=== PATIENT | female | born 1930 | race African-American/Black ===

== ENCOUNTER 2016-07-18 10:12 | Day surgery (SDC) | payer MEDICARE, OTHER ==
--- NOTE | 2016-06-16 09:21 | PREOPHP ---
DATE OF ADMISSION: 06/20/2016 HISTORY OF PRESENT ILLNESS: This 86-year-old patient is admitted for elective cataract surgery of t he right eye. The patient has had progressive deterioration of vision in the right eye without prio r history of eye disease or injury. The patient does have a history of deep vein thrombosis, conges tive heart failure, atrial fibrillation, systemic hypertension, fzl-nidqsrv-vklvlqefx diabetes melli tus, anemia, GERD, dementia, depressive disorder. CURRENT MEDICATIONS: Include: 1. Amlodipine. 2. Famotidine. 3. Iron sulfate. 4. Xarelto (discontinued for 5 days prior to surgery). 5. Carvedilol. 6. Tramadol. 7. Pro-Stat. 8. Remeron 9. Gabapentin. ALLERGIES: THERE ARE NO KNOWN ALLERGIES. PHYSICAL EXAMINATION: The patient has visual acuity of finger counting in the right eye and 20/60 i n the left eye. There is a right exotropia and a mature cataract in the right eye. The left eye israel s a moderate nuclear sclerosis and some posterior subcapsular cataract changes. Applanation tonomet ry is 16 mm in both eyes. Examination of the retina in the right eye is obscured by the mature caryl ract. The left eye appears within normal limits. DIAGNOSIS: Mature cataract, right eye. PLAN: Cataract extraction with lens implant, right eye. The risks and alternatives to the surgery as well as the inability to prognosticate visual outcome due to inability to visualize the retina in the right eye have been discussed with the patient. The patient understands this and desires to pr oceed with surgery in hopes of improving visual acuity leading to a greater ability to perform activ ities of daily living. Dictated By: OTILIA HEMPHILL/NOREEN Conf#: [id number] DID#: [id number]
[2016-07-10 11:25] VITALS: BMI 26.1
[2016-07-18] VITALS (8 sets, daily range): BP systolic 101–114; BP diastolic 55–76; PULSE 85–104; RESP 16–22; Ht 165.1 cm; Wt 74.5 kg
[~2016-07-18] VITALS: Ht 165.1 cm; Wt 74.5 kg
[~2016-07-18 10:12] MED LIST: CIPROFLOXACIN 0.3% 2.5 ML OPH OPER SCH; CYCLOPENTOLATE/PHENYLEPH 2 ML OPH OPER SCH; DICLOFENAC 0.1% 2.5 ML OPH OPER SCH; LIDOCAINE 2% (SDV) 5 ML INJ ONE; PROPOFOL 200 MG INJ ONE; TROPICAMIDE 1% 2 ML OPH OPER SCH
[2016-07-18] MEDS ORDERED: AMLO-147 PO (12:00)
[2016-07-18] MEDS ORDERED: MEMA28CA PO (12:00)
[2016-07-18] MEDS ORDERED: DOCU-144 PO (12:01)
[2016-07-18] MEDS ORDERED: MULTI PO (12:01)
[2016-07-18] MEDS ORDERED: DULR PR (12:01)
[2016-07-18] MEDS ORDERED: RIVA10TA PO ×2 (12:02→12:09)
[2016-07-18] MEDS ORDERED: MAGN400O4 PO (12:02)
[2016-07-18] MEDS ORDERED: GABA300C16 PO (12:02)
[2016-07-18] MEDS ORDERED: FER325 PO (12:03)
[2016-07-18] MEDS ORDERED: CRAN400T4 PO (12:03)
[2016-07-18] MEDS ORDERED: FAMO40TA52 PO (12:03)
[2016-07-18] MEDS ORDERED: SENN-53 PO (12:04)
[2016-07-18] MEDS ORDERED: FLEETOIL PR (12:04)
[2016-07-18] MEDS ORDERED: CARV6.2579 PO (12:05)
[2016-07-18] MEDS ORDERED: ASCO500C7 PO (12:05)
[2016-07-18] MEDS ORDERED: CHOL100062 PO (12:05)
[2016-07-18] MEDS ORDERED: MAGN400T28 PO (12:06)
[2016-07-18] MEDS ORDERED: TRAM-40 PO (12:06)
[2016-07-18] MEDS ORDERED: AMIN887L PO (12:07)
--- NOTE | 2016-07-18 12:07 | HPN ---
Date/Time of Note Date/Time of Note DATE: 07/18/16 TIME: 12:06 Interval H&P Admission Note Pt. seen H&P reviewed: No system changes OTILIA NICOLAS MD Jul 18, 2016 12:07
[2016-07-18] MEDS ORDERED: MIRT15TA PO (12:08)
[2016-07-18] MEDS ORDERED: LIDOCAINE 1% (MPF) 10 ML INJ ONE (12:46)
[2016-07-18] MEDS ORDERED: FENTAnyl 50 MCG/ML VIAL ONE (12:47)
[2016-07-18] MEDS ORDERED: DEXAMETHASONE 4 MG/ML 1 ML INJ ONE (12:48)
[2016-07-18] MEDS ORDERED: CARBACHOL 0.01% 1.5 ML OPH INJ INJ ONE (13:13)
[2016-07-18] MEDS ORDERED: CEFAZOLIN 1 GM INJ INJ ONE (13:13)
[2016-07-18] MEDS ORDERED: HYALURONATE/CHONDROITIN 1ML OPH INJ ONE (13:16)
--- NOTE | 2016-07-18 14:13 | OPR ---
DATE OF OPERATION: 07/18/2016 PREOPERATIVE DIAGNOSIS: Mature cataract, right eye. POSTOPERATIVE DIAGNOSIS: Mature cataract, right eye. OPERATION PERFORMED: Cataract extraction with lens implant, right eye. SURGEON: Otilia Montaño MD. ANESTHESIA: Local standby. ANESTHESIOLOGIST: ____. DESCRIPTION OF PROCEDURE: The patient was brought to the operating room and placed on the table wit h an IV in place and the patient attached to an case monitor. Oxygen was given via face mask. After some intravenous sedation was administered, local anesthesia was given using Xylocaine 2% with epinephrine, mixed with Marcaine 0.5%. This was given in a lid block and retrobulbar injection. The patient was then prepped and draped in the usual sterile manner. A wire lid speculum was inserted between the lids of the right eye. A Superblade was used to enter t he anterior chamber at the corneoscleral limbus at the 10:30 o'clock position. A separate incision w as made using a 3.0-mm keratome which entered the corneoscleral junction at the 12 o'clock position. Through this 3-mm opening, an irrigating cystotome was introduced into the anterior chamber. The ch uriah was filled with Viscoat and an anterior capsulotomy was performed. Balanced salt solution was then used for hydrodissection of the lens. A phacoemulsification handpiece was then brought into th e field and introduced into the anterior chamber. The lens nucleus was emulsified using a deep groov e and cracking the nucleus into quadrants. Following this, each quadrant was aspirated and emulsifie d at the pupillary margin. After this was completed, the irrigation/aspiration handpiece was brought to the field, introduced i nto the posterior chamber, and the lens cortical material was removed. When this was completed, teodora tional Viscoat was injected into the anterior and posterior chambers. The 3-mm opening had its internal lips enlarged, and then the posterior chamber intraocular lens janneth suring 21.5 diopters (Bausch and Lomb model [id number]) was then injected into the posterior chamber usi ng the lens injector system. After the leading haptic was introduced into the capsular bag and the l ens optic was present in the center of the eye, the injector was removed and the trailing haptic was grasped with non-toothed forceps and introduced into the capsular fold superiorly. A Sinskey hook w as then used to rotate the intraocular lens so that the lips were oriented in the horizontal meridia n. One 10-0 nylon suture was placed across the wound. Prior to tying, the irrigation/aspiration handpiece was reintroduced into the anterior chamber to re move the Viscoat. Miochol was instilled to constrict the pupil, and then the 10-0 nylon suture was t ied. The ends were cut short and then the knot was buried. Then, 0.5 mL of dexamethasone and 0.5 mL of Ancef were injected into the sub-Tenon space in the infe rior fornix. Ciloxan drops were then placed on the surface of the eye. The speculum was removed and a patch was applied. The patient then left the operating room in satisfactory condition. Dictated By: OTILIA HEMPHILL/NOREEN Conf#: [id number] DID#: [id number]
== END 2016-07-18 15:00 | disposition home or self-care (01) ==
LOC: SDS 10:12 → GIL 10:12 → EDSEX 10:12 → SDS 15:00
PROVIDERS: ATTEND Ophthalmology
DX: H25.89 Other age-related cataract (principal); I11.0 Hypertensive heart disease with heart failure; I50.30 Unspecified diastolic (congestive) heart failure; I48.91 Unspecified atrial fibrillation; E78.5 Hyperlipidemia, unspecified; M19.90 Unspecified osteoarthritis, unspecified site; Z86.73 Personal history of transient ischemic attack (TIA), and cerebral infarction without residual deficits; Z86.718 Personal history of other venous thrombosis and embolism; E11.9 Type 2 diabetes mellitus without complications; D64.9 Anemia, unspecified; K21.9 Gastro-esophageal reflux disease without esophagitis; F03.90 Unspecified dementia, unspecified severity, without behavioral disturbance, psychotic disturbance, mood disturbance, and anxiety; F32.9 Major depressive disorder, single episode, unspecified; H50.10 Unspecified exotropia
CPT/HCPCS: 66984; J0690; J1100; J3010; V2632

== ENCOUNTER 2016-12-03 08:46 | Inpatient (IN) | payer MEDICARE, OTHER ==
[~2016-12-03] VITALS: Ht 157.5 cm; Wt 74.8 kg
[~2016-12-03 08:46] MED LIST changes: +AMIN887L PO; +AMLO-147 PO; +ASCO500C7 PO; +BISA10SU75 PR; +CARV6.2579 PO; +CHOL100062 PO; -CIPROFLOXACIN 0.3% 2.5 ML OPH OPER SCH; +CRAN400T4 PO; -CYCLOPENTOLATE/PHENYLEPH 2 ML OPH OPER SCH; -DICLOFENAC 0.1% 2.5 ML OPH OPER SCH; +DOCU-144 PO; +FAMO40TA52 PO; +FER325 PO; +FLEETOIL PR; +GABA300C16 PO; -LIDOCAINE 2% (SDV) 5 ML INJ ONE; +MAGN400O4 PO; +MAGN400T28 PO; +MEMA28CA PO; +MIRT15TA PO; +MULTI PO; -PROPOFOL 200 MG INJ ONE; +RIVA10TA PO; +SENN-53 PO; +TRAM-40 PO; -TROPICAMIDE 1% 2 ML OPH OPER SCH
[2016-12-03] MEDS ORDERED: SOD CHLORIDE 0.9% 500 ML IV STA (08:50)
--- NOTE | 2016-12-03 09:08 | ERA ---
ER Documentation Chief Complaint Date/Time DATE: 12/03/16 TIME: 09:02 Chief Complaint HPI 86-year-old female brought in by ambulance for strokelike symptoms. She was found in bed this morning at her nursing facility at 8 AM with difficulty speaking and right-sided facial droop. Her last known well time was last night at 10 PM. It is unknown when her symptoms started. Patient is normally verbal. She is unable to provide any history given her aphasia. ROS Limited secondary to aphasia Medications Home Meds Reported Medications Rivaroxaban* (Xarelto*) 10 Mg Tablet, 10 MG PO BID, TAB 07/18/16 Mirtazapine* (Remeron*) 15 Mg Tablet, 7.5 MG PO HS, TAB 07/18/16 Amino Acids/Protein Hydrolys (Pro-Stat 64 Liquid) 887 Ml Liquid, 30 ML PO BID 07/18/16 Magnesium Oxide* (Magnesium Oxide*) 400 Mg Tablet, 400 MG PO DAILY, TAB 07/18/16 Tramadol Hcl* (Ultram*) 50 Mg Tablet, 50 MG PO Q8 Y for PAIN, TAB 07/18/16 Carvedilol* (Carvedilol*) 6.25 Mg Tablet, 6.25 MG PO BID, #60 TAB HOLD FOR SBP<110 OR HR<60 07/18/16 Cholecalciferol* (Vitamin D3*) 1,000 Unit Tablet, 1000 UNIT PO DAILY, TAB 07/18/16 Ascorbic Acid* (Vitamin C*) 500 Mg Capsule.sa, 500 MG PO DAILY, CAP 07/18/16 Sennosides* (Senna Lax*) 8.6 Mg Tablet, 1 TAB PO DAILY, TAB 07/18/16 Mineral Oil* (Fleet* Mineral Oil Enema) 133 Ml Oil, 133 ML CA DAILY Y for CONSTIPATION, ENEMA 07/18/16 Famotidine* (Famotidine*) 40 Mg Tablet, 40 MG PO HS, #30 TAB 07/18/16 Ferrous Sulfate* (Ferrous Sulfate*) 325 Mg Tabec, 325 MG PO BID, TAB 07/18/16 Cranberry Fruit (Cranberry) 400 Mg Tablet, 400 MG PO DAILY, TAB 07/18/16 Rivaroxaban* (Xarelto*) 10 Mg Tablet, 10 MG PO DAILY, TAB 07/18/16 Magnesium Hydroxide* (Milk Of Magnesia*) 400 Mg/5 Ml Oral.susp, 30 ML PO Q24H Y for CONSTIPATION, ML 07/18/16 Gabapentin* (Gabapentin*) 300 Mg Capsule, 300 MG PO TID, #90 CAP 07/18/16 Bisacodyl* (Bisacodyl*) 10 Mg Supp, 10 MG CA Q24H Y for CONSTIPATION, SUPP 07/18/16 Multivitamins* (Theragran*) 1 Tab Tab, 1 TAB PO DAILY, TAB 07/18/16 Docusate Sodium* (Colace*) 100 Mg Capsule, 100 MG PO BID, #60 CAP 07/18/16 Amlodipine Besylate* (Amlodipine Besylate*) 10 Mg Tablet, 10 MG PO DAILY, #30 TAB HOLD FOR SBP<110 07/18/16 Memantine* (Namenda* XR) 28 Mg Cap.spr.24, 28 MG PO DAILY, #30 TAB 07/18/16 Allergies Allergies: Coded Allergies: No Known Allergies (Verified Allergy, Unknown, 07/18/16) PMhx/Soc History of Surgery: No Anesthesia Reaction: No Hx Neurological Disorder: Yes (TIA) Hx Respiratory Disorders: No Hx Cardiac Disorders: Yes (CHF, HTN) Hx Psychiatric Problems: Yes (DEMENTIA, MAJOR DEPRESSION) Hx Miscellaneous Medical Probl: No Hx Alcohol Use: No Hx Substance Use: No Hx Tobacco Use: No FmHx Family History: other (unable to obtain) Physical Exam Vitals Vital Signs Date Time Temp Pulse Resp B/P Pulse Ox O2 Delivery O2 Flow Rate FiO2 12/03/16 10:16 60 12 174/82 100 Nasal Cannula 2.0 12/03/16 09:21 Nasal Cannula 2 12/03/16 08:53 98.9 78 20 168/88 98 Physical Exam Const: no apparent distress, nontoxic Head: Atraumatic Eyes: Normal Conjunctiva ENT: Dry mucous membranes Neck: Supple Resp: Clear to auscultation bilaterally Cardio: Irregularly irregular rhythm, regular rate, no murmurs Abd: Soft, non tender, non distended. Normal bowel sounds : Lakhani in place draining clear yellow urine Skin: No petechiae or rashes Back: No midline or flank tenderness Ext: No cyanosis, or edema, chronic appearing deformities in bilateral lower extremities with left anterior lower extremity wound overlying the tibia with dressing Neur: Awake and alert, slurred incomprehensible speech, right facial droop, unable to hold right arm up, able to hold left arm up. Strength testing is limited as the patient has very poor effort, but she does attempt to squeeze my hand on the left and there is no effort on the right. She does not move her lower extremities upon command. Result Diagram: 12/03/16 0948 12/03/16 0948 Results 24 hrs Laboratory Tests Test 12/03/16 09:48 12/03/16 10:20 12/03/16 10:25 White Blood Count 7.910^3/ul Red Blood Count 5.1010^6/ul Hemoglobin 14.2g/dl Hematocrit 44.9% Mean Corpuscular Volume 88.0fl Mean Corpuscular Hemoglobin 27.8pg Mean Corpuscular Hemoglobin Concent 31.6g/dl Red Cell Distribution Width 15.4% Platelet Count 19314^3/UL Mean Platelet Volume 13.0fl Neutrophils % 58.2% Lymphocytes % 24.7% Monocytes % 12.1% Eosinophils % 4.3% Basophils % 0.4% Nucleated Red Blood Cells % 0.0/100WBC Neutrophils # 4.610^3/ul Lymphocytes # 2.010^3/ul Monocytes # 1.010^3/ul Eosinophils # 0.310^3/ul Basophils # 0.010^3/ul Nucleated Red Blood Cells # 0.010^3/ul Prothrombin Time 13.8Sec Prothrombin Time Ratio 1.1 INR International Normalized Ratio 1.06 Activated Partial Thromboplast Time 26.9Sec Sodium Level 144mmol/L Potassium Level 3.9mmol/L Chloride Level 108mmol/L Carbon Dioxide Level 29mmol/L Anion Gap 11 Blood Urea Nitrogen 21mg/dl Creatinine 0.90mg/dl Glucose Level 90mg/dl Hemoglobin A1c 6.4% Calcium Level 9.5mg/dl Total Bilirubin 0.4mg/dl Direct Bilirubin 0.00mg/dl Indirect Bilirubin 0.4mg/dl Aspartate Amino Transf (AST/SGOT) 25IU/L Alanine Aminotransferase (ALT/SGPT) 31IU/L Alkaline Phosphatase 85IU/L Troponin I 0.012ng/ml Total Protein 7.6g/dl Albumin 4.2g/dl Globulin 3.40g/dl Albumin/Globulin Ratio 1.23 Urine Color LT. YELLOW Urine Clarity HAZY Urine pH 7.0 Urine Specific [place] 1.015 Urine Ketones NEGATIVE Urine Nitrite NEGATIVE Urine Bilirubin NEGATIVE Urine Urobilinogen 0.2 E.U./dL Urine Leukocyte Esterase 2+ Urine Microscopic RBC 25-50/HPF Urine Microscopic WBC 25-50/HPF Urine Squamous Epithelial Cells FEW Urine Bacteria FEW Urine Hemoglobin 2+ Urine Glucose NEGATIVE% Urine Total Protein NEGATIVE Urine Opiates Screen Negative Urine Barbiturates Negative Urine Amphetamines Screen Negative Urine Benzodiazepines Screen Negative Urine Cocaine Screen Negative Urine Cannabinoids Negative Bedside Glucose 70mg/dL Current Medications Medications (Trade) Dose Ordered Sig/Jc Route PRN Reason Start Time Stop Time Status Last Admin Dose Admin Sodium Chloride 500 ml @ 500 mls/hr Q1H STAT IV 12/03/16 08:50 12/03/16 09:49 DC 12/03/16 10:00 Dextrose/Sodium Chloride (D5-1/2ns) 1,000 ml @ 100 mls/hr Q10H ONCE IV 12/03/16 10:37 12/03/16 20:36 12/03/16 10:43 Ondansetron HCl (Zofran Inj) 4 mg ER BRIDGE PRN IV NAUSEA AND/OR VOMITING 12/03/16 11:30 12/04/16 11:29 Acetaminophen (Tylenol Tab) 650 mg ER BRIDGE PRN PO MILD PAIN/FEVER 12/03/16 11:30 12/04/16 11:29 Procedures/MDM Labs: CBC: no anemia or evidence of infection CMP: No evidence of electrolyte abnormality, renal failure, hypoglycemia, liver failure, or biliary obstruction Troponin within normal limits UA: Positive leuk esterase, WBCs, RBCs, consistent with UTI EKG: Rate/Rhythm: A flutter with variable block, normal rate QRS, ST, T-waves: No changes consistent w/ acute ischemia Impression: No evidence of ischemia or arrhythmia Imaging: CT head IMPRESSION: 1. Interval loss of gilbert-white differentiation within the right frontal parietal lobes suggesting acute / recent infarctions. Consider CTA of the head/ neck or noncontrast MRI of the brain as clinically warranted. 2. No acute intracranial hemorrhage. 3. Mild to moderate cerebral and mild volume loss. 4. Advanced chronic microvascular ischemic changes. 5. Small chronic left vertex infarction. 6. Small chronic right cerebellar infarction. .Jani Forrester MD, MD Date Time Electronically viewed and signed by .Jani Forrester MD, MD on 12/03/2016 09:16 MRI brain pending CXR: IMPRESSION: 1. Cardiomegaly with diffusely prominent interstitial lung markings likely representing mild interstitial edema. 2. Minimal left lower lobe atelectasis. 3. Chronic changes of the proximal right humerus with large nonspecific sclerotic density within the humeral head. Dedicated shoulder films may be obtained for further evaluation. .Crescencio Blanco MD, Date Time Electronically viewed and signed by .Crescencio Blanco MD, on 12/03/2016 09:48 MDM Patient's neurologic symptoms are concerning for acute stroke, infectious, or metabolic cause and will require inpatient workup and continuous monitoring. Vitals are stable. Urinalysis shows evidence of UTI. Broad-spectrum antibiotics given. There is no evidence of sepsis. As the patient is outside the TPA window, code stroke was not activated. MRI brain was ordered and is pending. There is no evidence of bleed on CT head. Further w/u for will be deferred to the inpatient team. Neuro Critical Care: Critical Care Time: 35 minutes Treatments/Evaluations: Continuous neurologic and cardiovascular monitoring for deterioration of neurologic function and complications, while obtaining immediate neurologic imaging. Considerations made for TPA and invasive therapy with discussions with family. TPA Criteria Assessment: Patient is not a TPA candidate because: Last known normal > 3 hours Time Onset Unknown Accepting Care Team: Current data and ongoing care discussed. Time: Time of admission Primary Provider: Esvin Consulting: none Outstanding Data: urine culture, MRI Brain Departure Diagnosis: Primary Impression: Acute ischemic stroke Additional Impression: UTI (urinary tract infection) Qualified Code: T83.511A - Urinary tract infection associated with indwelling urethral catheter, initial encounter Condition: Serious SIMEON YOUSSEF MD Dec 03, 2016 09:08
--- NOTE | 2016-12-03 09:16 | RADRPT ---
PROCEDURE: Noncontrast CT Head. CLINICAL INDICATION: Code stroke. Acute neurologic deficit. TECHNIQUE: Noncontrast CT of the head was obtained. The administered radiation dose was CTDI vol = 45.01 mGy, DLP = 720.23 mGy-cm. One or more of the following dose reduction techniques were used: Au tomated exposure control, Adjustment of the mA and/or kV according to patient size, or Use of iterat diya reconstruction technique. COMPARISON: Noncontrast CT of the head from July 28, 2016. FINDINGS: There is mild to moderate generalized cerebral volume loss. There is mild cerebellar volume loss. Th ere is extensive periventricular hypoattenuation suggesting chronic microvascular ischemic changes. There are mild vascular calcifications within the intracranial carotid arteries. There is a small chronic right cerebellar infarction. There is interval loss of gilbert-white differentiation within the right posterior frontal / parietal l obe most compatible with acute / recent right posterior frontal and right parietal lobe infarction w ithin the right middle cerebral artery distribution. There is a small chronic left vertex infarctio n. There is no acute intracranial hemorrhage or extra-axial fluid collection. No midline shift is identified. The orbits are within normal limits. The paranasal sinuses are well aerated. No destructive osseous lesion is identified. IMPRESSION: 1. Interval loss of gilbert-white differentiation within the right frontal parietal lobes suggesting ac [place] / recent infarctions. Consider CTA of the head/neck or noncontrast MRI of the brain as clinical ly warranted. 2. No acute intracranial hemorrhage. 3. Mild to moderate cerebral and mild volume loss. 4. Advanced chronic microvascular ischemic changes. 5. Small chronic left vertex infarction. 6. Small chronic right cerebellar infarction. Further findings as detailed above. These findings were discussed with Dr. Sejal Whyte at 09:12 a.m. on December 03, 2016. RPTAT: PP .Jani Forrester MD, Date Time Electronically viewed and signed by .Jani Forrester MD, on 12/03/2016 09:16 .F/
--- NOTE | 2016-12-03 09:48 | RADRPT ---
PROCEDURE: XR Chest. CLINICAL INDICATION: Shortness of breath TECHNIQUE: Single frontal chest x-ray. COMPARISON: None available FINDINGS: The heart size is enlarged. There is mild prominence of interstitial lung markings diffusely. Mini mal left lower lobe atelectasis is present. No definite effusion or pneumothorax is seen. Chronic deformity of the proximal right humerus is noted with 3.4 x 1.6 cm irregular sclerotic density seen at the humeral head. IMPRESSION: 1. Cardiomegaly with diffusely prominent interstitial lung markings likely representing mild inters titial edema. 2. Minimal left lower lobe atelectasis. 3. Chronic changes of the proximal right humerus with large nonspecific sclerotic density within th e humeral head. Dedicated shoulder films may be obtained for further evaluation. RPTAT: EE .Crescencio Blanco MD, Date Time Electronically viewed and signed by .Crescencio Blanco MD, on 12/03/2016 09:48 .A/
[2016-12-03 10:08] LABS: ADD SCAN DIFF NO
[2016-12-03 10:12] LABS: BASOPHILS % 0.4 % (0.0-2.0); EOSINOPHILS # 0.3 10^3/ul (0.0-0.5); EOSINOPHILS % 4.3 % (0.0-7.0); HEMATOCRIT 44.9 % (37.0-47.0); HEMOGLOBIN 14.2 g/dl (12.0-16.0); LYMPHOCYTES % 24.7 % (15.0-51.0); MEAN CORPUSCULAR HEMOGLOBIN 27.8 pg (29.0-33.0); MEAN CORPUSCULAR HGB CONC 31.6 g/dl (32.0-37.0); MONOCYTES % 12.1 % (0.0-11.0); NEUTROPHIL # 4.6 10^3/ul (1.6-7.5); NEUTROPHILS % 58.2 % (39.0-77.0); PLATELET COUNT 173 10^3/UL (140-415); RED CELL DISTRIBUTION WIDTH 15.4 % (11.5-14.5); WHITE BLOOD COUNT 7.9 10^3/ul (4.8-10.8)
[2016-12-03 10:34] LABS: INR 1.06; PROTIME 13.8 Sec (12.2-14.2); PT RATIO 1.1
[2016-12-03 10:35] LABS: PARTIAL THROMBOPLASTIN TIME 26.9 Sec (25.0-35.0)
[2016-12-03 10:35] LABS: ADD UMIC YES; UR BILIRUBIN (Dip) NEGATIVE (NEGATIVE); UR BLOOD (Dip) 2+ (NEGATIVE); UR COLOR LT. YELLOW (YELLOW); UR GLUCOSE (Dip) NEGATIVE (NEGATIVE); UR KETONES (Dip) NEGATIVE (NEGATIVE); UR LEUKOCYTE ESTERASE (Dip) 2+ (NEGATIVE); UR NITRITE (Dip) NEGATIVE (NEGATIVE); UR TOTAL PROTEIN (Dip) NEGATIVE (NEGATIVE); UR UROBILINOGEN (Dip) 0.2 E.U./dL (0.1-1.0)
[2016-12-03] MEDS ORDERED: DEXTROSE 5%-0.45% NACL 1,000 ML IV ONE (10:37)
[2016-12-03 10:39] LABS: ALBUMIN 4.2 g/dl (3.3-4.9); ALBUMIN/GLOBULIN RATIO 1.23; BILIRUBIN,INDIRECT 0.4 mg/dl (0-1.1); BILIRUBIN,TOTAL 0.4 mg/dl (0.2-1.3); CALCIUM 9.5 mg/dl (8.4-10.2); CREATININE 0.9 mg/dl (0.44-1.00); POTASSIUM 3.9 mmol/L (3.5-5.1); TOTAL PROTEIN 7.6 g/dl (6.1-8.1)
[2016-12-03 10:49] LABS: TROPONIN-I 0.012 ng/ml (0.00-0.12)
[2016-12-03 10:57] LABS: BARBITURATES Negative (NEGATIVE); BENZODIAZEPINES Negative (NEGATIVE); CANNABINOIDS Negative (NEGATIVE); COCAINE Negative (NEGATIVE)
[2016-12-03 11:00] LABS: UR BACTERIA FEW; UR SQUAMOUS EPITHELIAL CELL FEW; URINE RBCS 25-50 /HPF (0)
[2016-12-03 11:02] LABS: UR CLARITY HAZY (CLEAR)
[2016-12-03 11:11] LABS: OPIATES Negative (NEGATIVE)
[2016-12-03] MEDS ORDERED: ONDANSETRON 4 MG INJ IV PRN ×2 (11:30→21:00)
[2016-12-03] MEDS ORDERED: ACETAMINOPHEN 325 MG TAB PO PRN (11:30)
[2016-12-03] MEDS ORDERED: PIPER-TAZO 3.375 GM IV (PMX) 100 ML IVPB ONE (12:00)
--- NOTE | 2016-12-03 15:01 | HP ---
Date/Time of Note Date/Time of Note DATE: 12/03/16 TIME: 14:49 Assessment/Plan VTE Prophylaxis VTE Prophylaxis Intervention: LMWH Lines/Catheters IV Catheter Type (from Nrs): Peripheral IV Assessment/Plan Assessment/Plan 86 yo F admitted and managed for: 1. R sided frontal strokes 2. Probable UTI 3. PreDM 4. Paroxysmal Afib previously on xarelto 5. Chronic dementia PLAN: Admit tele / MRI / MRA brain and neck / 2D echo PT / OT eval / Neurology consult Screening labs for dyslipidemia, Thyroid disease Empiric ASA / Statin therapy Urine culture Neurology Consult, Speech and Physical therapy consults. Change Xarelto to full dose lovenox until cleared for oral meds Further evaluation and treatment will be based on clinical course and findings Prophylaxis: lovenox and Pepcid HPI/ROS Admit Date/Time Admit Date/Time 12/03/16 Hx of Present Illness 86-year-old female brought in by ambulance for strokelike symptoms. She was found in bed this morning at her nursing facility at 8 AM with difficulty speaking and right-sided facial droop. Her last known well time was last night at 10 PM. It is unknown when her symptoms started. Patient is normally verbal. She is unable to provide any history given her aphasia. ROS Subjective hx not possible: pt non-verbal PMH/Family/Social Past Medical History Medical History: hypertension Past Surgical History Past Surgical Hx: other (unknown) Family History Significant Family History: other (unknown) Social History Smoking Status: Unknown if ever smoked Exam/Review of Systems Vital Signs Vitals VS - Last 72 Hours, by Label Date Time Temp Pulse Resp B/P Pulse Ox O2 Delivery O2 Flow Rate FiO2 12/03/16 12:02 61 20 140/104 100 Nasal Cannula 12/03/16 10:16 60 12 174/82 100 Nasal Cannula 2.0 12/03/16 09:21 Nasal Cannula 2 12/03/16 08:53 98.9 78 20 168/88 98 Vital Signs Date Time Temp Pulse Resp B/P Pulse Ox O2 Delivery O2 Flow Rate FiO2 12/03/16 12:02 61 20 140/104 100 Nasal Cannula 12/03/16 10:16 2.0 12/03/16 08:53 98.9 Exam Exam GENERAL: Patient is alert, oriented , no distress HEENT: Oropharynx is clear. There is no carotid bruit, no masses. Patient's pupils are equal, round and reactive to light bilaterally. Extraocular motions are intact. There is no scleral icterus. There is no facial asymmetry. NECK: Supple. LUNGS: Clear to auscultation bilaterally with good air entry. No Wheezes or crackles. HEART: S1, S2. No murmur, gallops or rubs. Regular rate and rhythm. ABDOMEN: Soft, nontender. Normoactive bowel sounds. There are no stigmata of chronic liver disease. BACK: no costovertebral angle tenderness. GENITOURINARY: Deferred. Ext: No cyanosis, or edema, chronic appearing deformities in bilateral lower extremities with left anterior lower extremity wound overlying the tibia with dressing Neur: Awake and alert, slurred incomprehensible speech, right facial droop, unable to hold right arm up, able to hold left arm up. Strength testing is limited as the patient has very poor effort, but she does attempt to squeeze my hand on the left and there is no effort on the right. She does not move her lower extremities upon command. SKIN: Otherwise, unremarkable. Labs Result Diagram: 12/03/16 0948 12/03/16 0948 Medications Medications Current Medications Dextrose/Sodium Chloride (D5-1/2ns) 1,000 ml @ 100 mls/hr Q10H ONCE IV Last administered on 12/03/16t 10:43; Admin Dose 100 MLS/HR; Start 12/03/16 at 10:37 ; Stop 12/03/16 at 20:36 Procedures Procedures Laboratory Tests Test 12/03/16 09:48 12/03/16 10:20 12/03/16 10:25 White Blood Count 7.910^3/ul Red Blood Count 5.1010^6/ul Hemoglobin 14.2g/dl Hematocrit 44.9% Mean Corpuscular Volume 88.0fl Mean Corpuscular Hemoglobin 27.8pg Mean Corpuscular Hemoglobin Concent 31.6g/dl Red Cell Distribution Width 15.4% Platelet Count 22561^3/UL Mean Platelet Volume 13.0fl Neutrophils % 58.2% Lymphocytes % 24.7% Monocytes % 12.1% Eosinophils % 4.3% Basophils % 0.4% Nucleated Red Blood Cells % 0.0/100WBC Neutrophils # 4.610^3/ul Lymphocytes # 2.010^3/ul Monocytes # 1.010^3/ul Eosinophils # 0.310^3/ul Basophils # 0.010^3/ul Nucleated Red Blood Cells # 0.010^3/ul Prothrombin Time 13.8Sec Prothrombin Time Ratio 1.1 INR International Normalized Ratio 1.06 Activated Partial Thromboplast Time 26.9Sec Sodium Level 144mmol/L Potassium Level 3.9mmol/L Chloride Level 108mmol/L Carbon Dioxide Level 29mmol/L Anion Gap 11 Blood Urea Nitrogen 21mg/dl Creatinine 0.90mg/dl Glucose Level 90mg/dl Hemoglobin A1c 6.4% Calcium Level 9.5mg/dl Total Bilirubin 0.4mg/dl Direct Bilirubin 0.00mg/dl Indirect Bilirubin 0.4mg/dl Aspartate Amino Transf (AST/SGOT) 25IU/L Alanine Aminotransferase (ALT/SGPT) 31IU/L Alkaline Phosphatase 85IU/L Troponin I 0.012ng/ml Total Protein 7.6g/dl Albumin 4.2g/dl Globulin 3.40g/dl Albumin/Globulin Ratio 1.23 Urine Color LT. YELLOW Urine Clarity HAZY Urine pH 7.0 Urine Specific [place] 1.015 Urine Ketones NEGATIVE Urine Nitrite NEGATIVE Urine Bilirubin NEGATIVE Urine Urobilinogen 0.2 E.U./dL Urine Leukocyte Esterase 2+ Urine Microscopic RBC 25-50/HPF Urine Microscopic WBC 25-50/HPF Urine Squamous Epithelial Cells FEW Urine Bacteria FEW Urine Hemoglobin 2+ Urine Glucose NEGATIVE% Urine Total Protein NEGATIVE Urine Opiates Screen Negative Urine Barbiturates Negative Urine Amphetamines Screen Negative Urine Benzodiazepines Screen Negative Urine Cocaine Screen Negative Urine Cannabinoids Negative Bedside Glucose 70mg/dL Current Medications Medications (Trade) Dose Ordered Sig/Jc Route PRN Reason Start Time Stop Time Status Last Admin Dose Admin Sodium Chloride 500 ml @ 500 mls/hr Q1H STAT IV 12/03/16 08:50 12/03/16 09:49 DC 12/03/16 10:00 500 MLS/HR Dextrose/Sodium Chloride (D5-1/2ns) 1,000 ml @ 100 mls/hr Q10H ONCE IV 12/03/16 10:37 12/03/16 20:36 12/03/16 10:43 100 MLS/HR Ondansetron HCl (Zofran Inj) 4 mg ER BRIDGE PRN IV NAUSEA AND/OR VOMITING 12/03/16 11:30 12/04/16 11:29 Acetaminophen 650 mg 650 mg ER BRIDGE PRN PO MILD PAIN/FEVER 12/03/16 11:30 12/04/16 11:29 Piperacillin Sod/ Tazobactam Sod (Zosyn 3.375gm/ 100 ml (Pmx)) 100 ml @ 200 mls/hr ONCE ONCE IVPB 12/03/16 12:00 12/03/16 12:29 DC 12/03/16 13:00 200 MLS/HR EKG: Abnormal / A flutter / No STEMI CT head IMPRESSION: 1. Interval loss of gilbert-white differentiation within the right frontal parietal lobes suggesting acute / recent infarctions. Consider CTA of the head/ neck or noncontrast MRI of the brain as clinically warranted. 2. No acute intracranial hemorrhage. 3. Mild to moderate cerebral and mild volume loss. 4. Advanced chronic microvascular ischemic changes. 5. Small chronic left vertex infarction. 6. Small chronic right cerebellar infarction. .Jani Forrester MD, MD Date Time Electronically viewed and signed by .Jani Forrester MD, MD on 12/03/2016 09:16 PROCEDURE: XR Chest. FINDINGS: The heart size is enlarged. There is mild prominence of interstitial lung markings diffusely. Minimal left lower lobe atelectasis is present. No definite effusion or pneumothorax is seen. Chronic deformity of the proximal right humerus is noted with 3.4 x 1.6 cm irregular sclerotic density seen at the humeral head. IMPRESSION: 1. Cardiomegaly with diffusely prominent interstitial lung markings likely representing mild interstitial edema. 2. Minimal left lower lobe atelectasis. 3. Chronic changes of the proximal right humerus with large nonspecific sclerotic density within the humeral head. Dedicated shoulder films may be obtained for further evaluation. JIMI GARCIA Dec 03, 2016 15:00
[2016-12-03] MEDS: ATORVASTATIN 40 MG TAB PO SCH (21:00)
[2016-12-03 21:16] VITALS: PULSE 66
[2016-12-03] MEDS: FAMOTIDINE 20 MG INJ IV SCH (22:08)
[2016-12-03] MEDS: ENOXAPARIN 100 MG/ML SYG SC SCH (22:11)
[2016-12-03 22:16] VITALS: BP 146/85; RESP 16
[2016-12-03 23:29] VITALS: Ht 157.5 cm; Wt 74.8 kg
[2016-12-03 23:41] LABS: CREATINE KINASE 98 IU/L (23-200)
[2016-12-03 23:53] LABS: CK-MB 3.89 ng/ml (0.0-2.4)
[2016-12-03 23:57] LABS: TROPONIN-I < 0.012 ng/ml (0.00-0.12)
[2016-12-04] VITALS (12 sets, daily range): BP systolic 119–153; BP diastolic 60–103; PULSE 68–81; RESP 16–20
[2016-12-04 06:39] LABS: ADD SCAN DIFF NO
[2016-12-04 06:50] LABS: ABNORMAL IP MESSAGE 1; BASOPHILS % 0.6 % (0.0-2.0); EOSINOPHILS # 0.3 10^3/ul (0.0-0.5); HEMOGLOBIN 13.4 g/dl (12.0-16.0); LYMPHOCYTES # 1.3 10^3/ul (0.8-2.9); LYMPHOCYTES % 17.5 % (15.0-51.0); MEAN CORPUSCULAR HEMOGLOBIN 28.3 pg (29.0-33.0); MEAN CORPUSCULAR HGB CONC 32.7 g/dl (32.0-37.0); MEAN CORPUSCULAR VOLUME 86.5 fl (82.0-101.0); MEAN PLATELET VOLUME 13.2 fl (7.4-10.4); MONOCYTE # 0.9 10^3/ul (0.3-0.9); MONOCYTES % 11.7 % (0.0-11.0); NEUTROPHIL # 4.8 10^3/ul (1.6-7.5); NEUTROPHILS % 65.9 % (39.0-77.0); PLATELET COUNT 158 10^3/UL (140-415); RED BLOOD COUNT 4.74 10^6/ul (4.20-5.40); RED CELL DISTRIBUTION WIDTH 15.4 % (11.5-14.5); WHITE BLOOD COUNT 7.3 10^3/ul (4.8-10.8)
[2016-12-04 07:02] LABS: ALBUMIN 3.6 g/dl (3.3-4.9); BILIRUBIN,INDIRECT 0.6 mg/dl (0-1.1); BILIRUBIN,TOTAL 0.6 mg/dl (0.2-1.3); CALCIUM 9.6 mg/dl (8.4-10.2); CHOL/HDL RATIO 5.6 RATIO; CREATININE 0.65 mg/dl (0.44-1.00); MAGNESIUM 1.7 mg/dl (1.7-2.5); POTASSIUM 4.1 mmol/L (3.5-5.1); TOTAL PROTEIN 6.8 g/dl (6.1-8.1)
[2016-12-04 07:04] LABS: INR 1.16; PARTIAL THROMBOPLASTIN TIME 33.2 Sec (25.0-35.0); PROTIME 14.8 Sec (12.2-14.2); PT RATIO 1.2
[2016-12-04 07:15] LABS: CK-MB 2.88 ng/ml (0.0-2.4); TROPONIN-I 0.021 ng/ml (0.00-0.12)
[2016-12-04 07:32] LABS: THYROID STIMULATING HORMONE 1.68 MIU/L (0.465-4.680)
[2016-12-04] MEDS ORDERED: ASPIRIN (EC) 81 MG TAB PO SCH (09:00)
[2016-12-04] MEDS: FAMOTIDINE 20 MG INJ IV SCH ×2 (09:09→20:33)
--- NOTE | 2016-12-04 09:09 | RADRPT ---
PROCEDURE: US Carotids. CLINICAL INDICATION: Dizziness, stroke. TECHNIQUE: Multiple sonographic of the carotid bifurcation region and vertebral arteries were obta ined utilizing gilbert scale, duplex and color-flow imaging. The images were reviewed on a PACS worksta tion. COMPARISON: No prior studies are available for comparison. FINDINGS: Evaluation of the right carotid bifurcation region reveals mild atherosclerotic disease in the carot id bulb. Evaluation of the left carotid bifurcation region reveals mild atherosclerotic disease in the caroti d bulb. There is antegrade flow within the vertebral arteries bilaterally. RIGHT CAROTID MEASUREMENTS: Common Carotid [id number] (cm/sec) Internal Carotid Artery - proximal 43 (cm/sec) Internal Carotid Artery - mid37 (cm/sec) Internal Carotid Artery - [id number] (cm/sec) External Corotid Artery 37 (cm/sec) Vertebral Artery 20 (cm/sec) Internal Carotid/Common Carotid 1.6 LEFT CAROTID MEASUREMENTS: Common Carotid Artery 44 (cm/sec) Internal Carotid Artery - proximal 36 (cm/sec) Internal Carotid Artery - mid 34 (cm/sec) Internal Carotid Artery - distal 45 (cm/sec) External Corotid Artery 85 (cm/sec) Vertebral Artery 34 (cm/sec) Internal Carotid/Common Carotid 1.0 IMPRESSION: No evidence for hemodynamically significant carotid artery stenosis. Mild atherosclerotic disease in the carotid bulbs. Antegrade flow in the vertebral arteries bilaterally. Validated velocity measurements with angiographic measurements, velocity criteria are extrapolated f rom diameter data as defined by the Society of Radiologists in Ultrasound Consensus Conference Radi ology 2003; 229; 340 - 346. This study does indirectly reference the measurement of the distal inte rnal carotid artery diameter as the denominator for stenosis measurement. RPTAT: AA .Bennett Ramírez MD, MD Date Time Electronically viewed and signed by .Bennett Ramírez MD, MD on 12/04/2016 09:09 .P/
[2016-12-04] MEDS: ENOXAPARIN 100 MG/ML SYG SC SCH ×2 (09:11→20:35)
--- NOTE | 2016-12-04 15:41 | PN ---
Date/Time of Note Date/Time of Note DATE: 12/04/16 TIME: 15:34 Assessment/Plan VTE Prophylaxis VTE Prophylaxis Intervention: LMWH Lines/Catheters IV Catheter Type (from Nrs): Saline Lock Urinary Cath still in place: Yes Reason Cath still needed: urinary retention Assessment/Plan Chief Complaint/Hosp Course Assessment/Plan: 86 yo F admitted and managed for: 1. R sided frontal strokes - pt failed ST eval. - f/u MRI / MRA brain and neck / 2D echo - f/u PT / OT eval / Neurology consult - Screening labs for dyslipidemia, Thyroid disease - Empiric ASA / Statin therapy 2. Probable UTI - start Rocephin 3. Pre DM - ISS 4. Paroxysmal Afib previously on xarelto - on LMWH now b/c failed ST 5. Chronic dementia Prophylaxis: lovenox and Pepcid Problems: Subjective 24 Hr Interval Summary Free Text/Dictation Pt awaiting Neuro consult, seen by ST. Exam/Review of Systems Vital Signs Vitals Vital Signs Date Time Temp Pulse Resp B/P Pulse Ox O2 Delivery O2 Flow Rate FiO2 12/04/16 15:32 98.6 68 20 141/69 97 12/04/16 10:21 Nasal Cannula 2.0 Intake and Output 12/03/16 12/03/16 12/04/16 15:00 23:00 07:00 Intake Total 0 ml Output Total 1500 ml Balance -1500 ml Exam GENERAL: Patient is alert, oriented , no distress HEENT: Oropharynx is clear. There is no carotid bruit, no masses. Patient's pupils are equal, round and reactive to light bilaterally. Extraocular motions are intact. There is no scleral icterus. There is no facial asymmetry. NECK: Supple. LUNGS: Clear to auscultation bilaterally with good air entry. No Wheezes or crackles. HEART: S1, S2. No murmur, gallops or rubs. Regular rate and rhythm. ABDOMEN: Soft, nontender. Normoactive bowel sounds. There are no stigmata of chronic liver disease. BACK: no costovertebral angle tenderness. Ext: No cyanosis, or edema, chronic appearing deformities in bilateral lower extremities with left anterior lower extremity wound overlying the tibia with dressing Neur: Awake and alert, slurred incomprehensible speech, right facial droop, unable to hold right arm up, but able to hold left arm up. Strength testing is limited as the patient has very poor effort, but she does attempt to squeeze my hand on the left and there is no effort on the right. She does not move her lower extremities upon command. SKIN: Otherwise, unremarkable. Results Result Diagram: 12/04/1615 12/04/16 0615 Results 24 hrs Laboratory Tests Test 12/03/16 22:45 12/04/16 06:15 Creatine Kinase 98 103 Creatine Kinase Index 4.0 2.8 Creatinine Kinase MB (Mass) 3.89 H 2.88 H Troponin I < 0.012 0.021 White Blood Count 7.3 Red Blood Count 4.74 Hemoglobin 13.4 Hematocrit 41.0 Mean Corpuscular Volume 86.5 Mean Corpuscular Hemoglobin 28.3 L Mean Corpuscular Hemoglobin Concent 32.7 Red Cell Distribution Width 15.4 H Platelet Count 158 Mean Platelet Volume 13.2 H Neutrophils % 65.9 Lymphocytes % 17.5 Monocytes % 11.7 H Eosinophils % 4.0 Basophils % 0.6 Nucleated Red Blood Cells % 0.0 Neutrophils # 4.8 Lymphocytes # 1.3 Monocytes # 0.9 Eosinophils # 0.3 Basophils # 0.0 Nucleated Red Blood Cells # 0.0 Prothrombin Time 14.8 H Prothrombin Time Ratio 1.2 INR International Normalized Ratio 1.16 Activated Partial Thromboplast Time 33.2 Sodium Level 145 H Potassium Level 4.1 Chloride Level 112 H Carbon Dioxide Level 23 Anion Gap 14 Blood Urea Nitrogen 13 Creatinine 0.65 Glucose Level 85 Calcium Level 9.6 Magnesium Level 1.7 Total Bilirubin 0.6 Direct Bilirubin 0.00 Indirect Bilirubin 0.6 Aspartate Amino Transf (AST/SGOT) 25 Alanine Aminotransferase (ALT/SGPT) 34 Alkaline Phosphatase 79 Total Protein 6.8 Albumin 3.6 Triglycerides Level 102 Cholesterol Level 198 LDL Cholesterol, Calculated 143 HDL Cholesterol 35 Cholesterol/HDL Ratio 5.6 Thyroid Stimulating Hormone (TSH) 1.680 Medications Medications Current Medications Atorvastatin Calcium (Lipitor) 40 mg HS PO ; Start 12/03/16 at 21:00 Ondansetron HCl (Zofran Inj) 4 mg Q6H PRN IV NAUSEA AND/OR VOMITING; Start at 21:00 Famotidine (Pepcid Iv) 20 mg BID IV Last administered on 12/04/16t 09:09; Admin Dose 20 MG; Start 12/03/16 at 21:00 Enoxaparin Sodium (Lovenox) 75 mg Q12 SC Last administered on 12/04/16t 09:11; Admin Dose 75 MG; Start 12/03/16 at 21:30 Aspirin 300 mg 300 mg DAILY [place] ; Start 12/05/16 at 09:00 Ceftriaxone Sodium (Rocephin) 50 ml @ 100 mls/hr Q24H IVPB ; Start 12/04/16 at 15:30 DIANNA DIAZ Dec 04, 2016 15:41 DIANNA DIAZ Dec 04, 2016 15:41
--- NOTE | 2016-12-04 17:17 | RADRPT ---
Echocardiogram Report Patient Name: ADRIAN ADAMSON Gender: Female Date: 1930 Study Date: 04-Dec-2016 Project Associate: Ciro Temple [facility] Location: [facility] Ref. Physician: JIMI GARCIA Quality: Adequate Procedures: Transthoracic echocardiogram with complete 2D, M-Mode, and doppler examination. Indications: stroke. 2D/M Mode Doppler Measurement Value Normal Ranges Measurement Value Normal Ranges LVIDd 2D 3.3 3.5 - 5.6 cm AV Peak Missael 1.1 m/sec LVIDs 2D 2.4 2.1 - 4.1 cm AV Peak PG 5.0 mmHg FS 2D 25.4 % LVOT Peak Missael 0.8 m/sec LVPWd 2D 1.1 0.6 - 1.1 cm LVOT Peak PG 3.0 mmHg IVSd 2D 1.2 0.6 - 1.1 cm MV E Peak Missael 1.0 m/sec IVS/LVPW 2D 1.1 MV Decel Time 183 msec AoR Diam 2D 2.4 2.0 - 3.7 cm TR Peak Missael 3.1 m/sec LA/Ao 2D 2 0 - 1 TR Peak PG 39.0 mmHg EDV 2D 35.0 cm3 RVSP 47.0 mmHg ESV 2D 14.5 cm3 LA Dimen 2D 3.9 2.3 - 4.0 cm Findings Left Ventricle: Normal left ventricular systolic function. Normal left ventricular cavity size. Mild concentric left ventricular hypertrophy. Ejection fraction is visually estimated at 55 %. Abnormal Diastolic Function. Right Ventricle: Normal right ventricular size. Normal right ventricular systolic function. Left Atrium: There is moderate enlargement of left atrium. Right Atrium: There is mild enlargement of right atrium. Mitral Valve: Mild mitral leaflet calcification. Mild mitral annular calcification. Trace mitral regurgitation. Aortic Valve: Normal appearance of the aortic valve. No significant aortic stenosis or insufficiency. Tricuspid Valve: Normal appearance of the tricuspid valve. Estimated peak PA systolic pressure 47 mmHg. There is mild to moderate tricuspid regurgitation. Pulmonic Valve: Normal pulmonic valve appearance. Pericardium: Normal pericardium with no significant pericardial effusion. Aorta: Normal aortic root. IVC: Normal size and no respiratory collapse consistent with elevated right atrial pressure. Conclusions Normal left ventricular systolic function. Normal left ventricular cavity size. Mild concentric left ventricular hypertrophy. Ejection fraction is visually estimated at 55 %. Abnormal Diastolic Function. Normal right ventricular size. Normal right ventricular systolic function. There is moderate enlargement of left atrium. There is mild enlargement of right atrium. Normal appearance of the tricuspid valve. Estimated peak PA systolic pressure 47 mmHg. There is mild to moderate tricuspid regurgitation. No significant valvular stenosis or regurgitation seen of remaining visualized valves. Normal pericardium with no significant pericardial effusion. Electronically Signed By: Brijesh Alejandro 04-Dec-2016 17:16:55 -0700 Patient Name: ADRIAN ADAMSON Study Date: 04-Dec-2016 [id number]
--- NOTE | 2016-12-04 18:43 | RADRPT ---
PROCEDURE: MRI Brain without contrast. CLINICAL INDICATION: Neurologic deficit. Possible stroke TECHNIQUE: MRI of the brain was performed with the following sequences obtained: Sagittal, coronal and axial T1-weighted, axial T2-weighted, axial FLAIR, axial diffusion weighted (with ADC map), and coronal GRE. COMPARISON: CT brain 12/03/2016 FINDINGS: The examination is extremely limited by patient motion artifact and is almost nondiagnostic Subtle restricted hyperintense diffusion signal within the right parietal lobe white matter correspo nding to the hypodensity on the prior CT is present with some matching hyperintense T2 signal, findi ngs suggesting a subacute ischemic type infarct. No hemorrhage, mass effect or mass lesion is prese nt. The extraaxial spaces are clear of collections. Prominence of the ventricular system and cereb ral sulci is consistent with severe generalized atrophy. Extensive hyperintense T2 signal within th e subcortical and periventricular white matter is nonspecific but likely the sequela of chronic smal l vessel ischemia. Linear chronic lacunar infarct in the inferior right cerebellar hemisphere is again noted superimpos ed upon advanced cerebellar atrophy. The fourth ventricle is midline and the craniocervical junctio n lesion is intact. The area of the sella is normal. The bony calvarium and skull base are grossly intact. The visualized paranasal sinuses and mastoid air cells are grossly clear. Physiologic flow voids within the internal carotid and vertebral arter ies are maintained. RPTAT:HJJR IMPRESSION: 1. Motion degradation severely limits the examination. 2. Subtle area of restricted diffusion with associated hyperintense T2 signal located in the right parietal lobe white matter corresponds to the hypodensity seen on the CT of 12/03/2016 and suggestiv e of a subacute ischemic infarct in the posterior division right middle cerebral artery distribution . 3. Severe generalized cerebral and cerebellar atrophy with extensive chronic small vessel ischemic disease of the cerebral white matter. 4. Chronic lacunar infarct within the right inferior cerebellar hemisphere. Physician Vidhya Date Time Electronically viewed and signed by Physician Vidhya on 12/04/2016 18:43 /
[2016-12-04] MEDS: CEFTRIAXONE 1 GM/50 ML (PMX) 50 ML IVPB SCH (20:23)
[2016-12-04] MEDS: ATORVASTATIN 40 MG TAB PO SCH (20:50)
[2016-12-05] VITALS (14 sets, daily range): BP systolic 123–168; BP diastolic 71–99; PULSE 57–81; RESP 16–20
[2016-12-05 07:36] LABS: ADD SCAN DIFF NO
[2016-12-05 07:41] LABS: BASOPHIL # 0.1 10^3/ul (0.0-0.1); BASOPHILS % 0.8 % (0.0-2.0); EOSINOPHILS # 0.1 10^3/ul (0.0-0.5); EOSINOPHILS % 1.3 % (0.0-7.0); HEMATOCRIT 42.2 % (37.0-47.0); HEMOGLOBIN 13.5 g/dl (12.0-16.0); LYMPHOCYTES % 12.9 % (15.0-51.0); MEAN CORPUSCULAR VOLUME 87.4 fl (82.0-101.0); MONOCYTE # 0.9 10^3/ul (0.3-0.9); NEUTROPHIL # 5.7 10^3/ul (1.6-7.5); NEUTROPHILS % 73.7 % (39.0-77.0); PLATELET COUNT 152 10^3/UL (140-415); RED BLOOD COUNT 4.83 10^6/ul (4.20-5.40); RED CELL DISTRIBUTION WIDTH 15.3 % (11.5-14.5); WHITE BLOOD COUNT 7.7 10^3/ul (4.8-10.8)
[2016-12-05 08:09] LABS: CALCIUM 9.5 mg/dl (8.4-10.2); CREATININE 0.65 mg/dl (0.44-1.00); POTASSIUM 3.8 mmol/L (3.5-5.1)
[2016-12-05] MEDS: ASPIRIN 300 MG SUPP PR SCH (10:16)
[2016-12-05] MEDS: FAMOTIDINE 20 MG INJ IV SCH ×2 (10:16→20:39)
[2016-12-05] MEDS: ENOXAPARIN 100 MG/ML SYG SC SCH ×2 (10:20→20:47)
[2016-12-05] MEDS ORDERED: GLUCOSE GEL 15 GRAM TUBE PO PRN ×2 (10:30)
[2016-12-05] MEDS ORDERED: DEXTROSE 50% 50 ML SYRINGE IV PRN ×2 (10:30)
[2016-12-05] MEDS ORDERED: GLUCOSE GEL 15 GRAM TUBE BUCCAL PRN (10:30)
[2016-12-05] MEDS ORDERED: GLUCAGON 1 MG INJ IM PRN (10:30)
[2016-12-05] MEDS: DEXTROSE 5%-0.45% NACL 1,000 ML IV SCH (10:43)
[2016-12-05] MEDS: INSULIN ASPART [NOVOLOG] 3 ML PEN SC SCH ×3 (11:50→20:52)
--- NOTE | 2016-12-05 14:23 | PN ---
Date/Time of Note Date/Time of Note DATE: 12/05/16 TIME: 14:20 Assessment/Plan VTE Prophylaxis VTE Prophylaxis Intervention: LMWH Lines/Catheters IV Catheter Type (from Nrs): Peripheral IV Urinary Cath still in place: Yes Reason Cath still needed: urinary retention Assessment/Plan Chief Complaint/Hosp Course Assessment/Plan: 86 yo F admitted and managed for: 1. R sided frontal strokes - pt failed ST eval - reeval performed today.. - f/u PT / OT eval / Neurology consult - Screening labs for dyslipidemia, Thyroid disease - Empiric ASA / Statin therapy 2. Probable UTI - Rocephin 3. Pre DM - ISS 4. Paroxysmal Afib previously on xarelto - on LMWH b/c failed ST 5. Chronic dementia Prophylaxis: lovenox and Pepcid Problems: Subjective 24 Hr Interval Summary Free Text/Dictation Pt still waiting to be seen by Neuro team. Seen again by ST team. Exam/Review of Systems Vital Signs Vitals Vital Signs Date Time Temp Pulse Resp B/P Pulse Ox O2 Delivery O2 Flow Rate FiO2 12/05/16 12:43 57 18 123/75 100 Nasal Cannula 2.0 12/05/16 11:39 97.8 Intake and Output 12/04/16 12/04/16 12/05/16 15:00 23:00 07:00 Intake Total 50 ml 0 ml Output Total 600 ml Balance 50 ml -600 ml Exam GENERAL: Patient is alert, oriented , no distress HEENT: Oropharynx is clear. There is no carotid bruit, no masses. Patient's pupils are equal, round and reactive to light bilaterally. Extraocular motions are intact. There is no scleral icterus. There is no facial asymmetry. NECK: Supple. LUNGS: Clear to auscultation bilaterally with good air entry. No Wheezes or crackles. HEART: S1, S2. No murmur, gallops or rubs. Regular rate and rhythm. ABDOMEN: Soft, nontender. Normoactive bowel sounds. There are no stigmata of chronic liver disease. BACK: no costovertebral angle tenderness. Ext: No cyanosis, or edema, chronic appearing deformities in bilateral lower extremities with left anterior lower extremity wound overlying the tibia with dressing Neur: Awake and alert, slurred incomprehensible speech, right facial droop, unable to hold right arm up, but able to hold left arm up. Strength testing is limited as the patient has very poor effort, but she does attempt to squeeze my hand on the left and there is no effort on the right. She does not move her lower extremities upon command. SKIN: Otherwise, unremarkable. Results Result Diagram: 12/05/16 0655 12/05/16 0425 Results 24 hrs Laboratory Tests Test 12/05/16 04:25 12/05/16 06:55 12/05/16 12:46 Sodium Level 145 H Potassium Level 3.8 Chloride Level 111 H Carbon Dioxide Level 22 Anion Gap 16 Blood Urea Nitrogen 12 Creatinine 0.65 Glucose Level 78 Calcium Level 9.5 White Blood Count 7.7 Red Blood Count 4.83 Hemoglobin 13.5 Hematocrit 42.2 Mean Corpuscular Volume 87.4 Mean Corpuscular Hemoglobin 28.0 L Mean Corpuscular Hemoglobin Concent 32.0 Red Cell Distribution Width 15.3 H Platelet Count 152 Mean Platelet Volume 13.0 H Neutrophils % 73.7 Lymphocytes % 12.9 L Monocytes % 11.0 Eosinophils % 1.3 Basophils % 0.8 Nucleated Red Blood Cells % 0.0 Neutrophils # 5.7 Lymphocytes # 1.0 Monocytes # 0.9 Eosinophils # 0.1 Basophils # 0.1 Nucleated Red Blood Cells # 0.0 Bedside Glucose 112 Medications Medications Current Medications Atorvastatin Calcium (Lipitor) 40 mg HS PO ; Start 12/03/16 at 21:00 Ondansetron HCl (Zofran Inj) 4 mg Q6H PRN IV NAUSEA AND/OR VOMITING; Start at 21:00 Famotidine (Pepcid Iv) 20 mg BID IV Last administered on 12/05/16 10:16; Admin Dose 20 MG; Start 12/03/16 at 21:00 Enoxaparin Sodium (Lovenox) 75 mg Q12 SC Last administered on 12/05/16 10:20; Admin Dose 75 MG; Start 12/03/16 at 21:30 Aspirin 300 mg 300 mg DAILY [place] Last administered on 12/05/16 10:16; Admin Dose 300 MG; Start 12/05/16 at 09:00 Ceftriaxone Sodium 50 ml @ 100 mls/hr Q24H IVPB Last administered on 20:23; Admin Dose 100 MLS/HR; Start 12/04/16 at 15:30 Dextrose/Sodium Chloride (D5-1/2ns) 1,000 ml @ 75 mls/hr [id number] IV Last administered on 12/05/16t 10:43; Admin Dose 75 MLS/HR; Start 12/05/16 at 10:00 Diagnostic Test (Pha) (Accu-Chek) 1 ea 02 XX ; Start 12/06/16 at 02:00 Miscellaneous Information 1 ea NOTE XX ; Start 12/05/16 at 10:30 Glucose (Glutose) 15 gm Q15M PRN PO DECREASED GLUCOSE; Start 12/05/16 at 10:30 Glucose (Glutose) 22.5 gm Q15M PRN PO DECREASED GLUCOSE; Start 12/05/16 at 10: 30 Dextrose (D50w Syringe) 25 ml Q15M PRN IV DECREASED GLUCOSE; Start 12/05/16 at 10:30 Dextrose (D50w Syringe) 50 ml Q15M PRN IV DECREASED GLUCOSE; Start 12/05/16 at 10:30 Glucagon (Glucagen) 1 mg Q15M PRN IM DECREASED GLUCOSE; Start 12/05/16 at 10:30 Glucose 15 gm 15 gm Q15M PRN BUCCAL DECREASED GLUCOSE; Start 12/05/16 at 10:30 Fluconazole (Diflucan 200 Mg/ NS (Pmx)) 100 ml @ 100 mls/hr Q24H IVPB ; Start 12/05/16 at 14:30 Procedures Procedures 1. 2D ECHO: Conclusions Normal left ventricular systolic function. Normal left ventricular cavity size. Mild concentric left ventricular hypertrophy. Ejection fraction is visually estimated at 55 %. Abnormal Diastolic Function. Normal right ventricular size. Normal right ventricular systolic function. There is moderate enlargement of left atrium. There is mild enlargement of right atrium. Normal appearance of the tricuspid valve. Estimated peak PA systolic pressure 47 mmHg. There is mild to moderate tricuspid regurgitation. No significant valvular stenosis or regurgitation seen of remaining visualized valves. Normal pericardium with no significant pericardial effusion. 2. Brain MRI IMPRESSION: 1. Motion degradation severely limits the examination. 2. Subtle area of restricted diffusion with associated hyperintense T2 signal located in the right parietal lobe white matter corresponds to the hypodensity seen on the CT of 12/03/2016 and suggestive of a subacute ischemic infarct in the posterior division right middle cerebral artery distribution. 3. Severe generalized cerebral and cerebellar atrophy with extensive chronic small vessel ischemic disease of the cerebral white matter. 4. Chronic lacunar infarct within the right inferior cerebellar hemisphere. IDANNA DIAZ. Dec 05, 2016 14:23
[2016-12-05] MEDS: CEFTRIAXONE 1 GM/50 ML (PMX) 50 ML IVPB SCH (14:24)
[2016-12-05] MEDS: FLUCONAZOLE 200 MG/NS (PMX) 100 ML IVPB SCH (15:14)
[2016-12-05] MEDS: ATORVASTATIN 40 MG TAB PO SCH (20:40)
[2016-12-05] MEDS: DIPYRIDAMOLE/ASPIRIN (SR) CAP PO SCH (20:40)
--- NOTE | 2016-12-05 21:13 | HKNOTE ---
DATE OF SERVICE: REFERRING PHYSICIAN: Dr. Garcia and Dr. Diaz Thank you for asking me to see the patient with you. HISTORY OF PRESENT ILLNESS: The patient is an 86-year-old lady who was admitted to [facility] with multiple medical problems in the form of AFib, was on Xarelto; chronic dementia, d iabetes, urinary tract infection, with underlying stroke in which the patient had a right middle cer ebral artery stroke superior division in which I got a call about her. The patient found at nursing facility in the morning with difficulty speaking, left side facial droop. PAST MEDICAL HISTORY: In the form of hypertension. PAST SURGICAL HISTORY: Unknown. PHYSICAL EXAMINATION: GENERAL: On exam today, the patient is alert, awake, opens her eyes, ____ speak and follow simple c ommands. She has difficulty following 2nd or 3rd step commands. The patient has slurred speech wit h decreased language, word finding difficulty. CRANIAL NERVES: Cranial nerve II: Pupils equal on both sides. Cranial nerves III, IV, and : Ex traocular muscles intact. No nystagmus. Cranial nerve V: Equal sensation to face. Cranial nerve VII: Decreased nasolabial fold on the left side. Cranial nerve VIII: Decreased hearing bilaterall y. Cranial nerve IX, X: Elevates palate. Cranial nerve XI: Elevates shoulders 5/5. Cranial nerv e XII: With straight tongue. MOTOR: Decreased left side, 4/5. Bilateral extremities are weak. SENSATION: Decreased right hand for glove and sock area for light touch and temperature. COORDINATION: [id number] test could not assess. HEART: With regular rate and rhythm. LUNGS: Equal breath sounds. ABDOMEN: Soft, relaxed, nondistended, nontender. ASSESSMENT AND PLAN: 1. The patient is 86 years old with right middle cerebral artery stroke in superior division. I wi ll start the patient on Aggrenox twice a day and discontinue the aspirin. 2. Weakness of the patient's bilateral lower extremities. Follow up the patient with instructor physical education apy and occupational therapy. 3. Keep the patient on deep vein thrombosis prophylaxis as well as decubitus ulcer prophylaxis. 4. The patient's heart is sinus rhythm. However, she has a history of atrial fibrillation in which the patient was on Xarelto in the past, which is not needed as long as the patient is not in atrial fibrillation. Will follow up the patient with cardiac echogram, carotid Doppler. 5. Follow up the patient with lipid panel and maximize her statin. 6. Slurred speech, probably secondary to the stroke and follow up the patient with speech therapist . Again, thank you for asking me to see the patient with you. Dictated By: JOSE NUÑEZ MD NA/NTS Conf#: [id number] DID#: [id number] CC: DIANNA DIAZ; JIMI GARCIA MD;*End*
[2016-12-06] VITALS (11 sets, daily range): BP systolic 139–146; BP diastolic 76–93; PULSE 61–84; RESP 18–20
[2016-12-06] MEDS: DEXTROSE 5%-0.45% NACL 1,000 ML IV SCH ×2 (00:42→15:24)
[2016-12-06] MEDS: ACCU-CHEK XX SCH (02:00)
[2016-12-06 07:41] LABS: ADD SCAN DIFF NO
[2016-12-06] MEDS: INSULIN ASPART [NOVOLOG] 3 ML PEN SC SCH ×4 (07:55→20:42)
[2016-12-06 07:56] LABS: ABNORMAL IP MESSAGE 1; BASOPHILS % 0.5 % (0.0-2.0); EOSINOPHILS # 0.2 10^3/ul (0.0-0.5); EOSINOPHILS % 2.2 % (0.0-7.0); HEMATOCRIT 43.2 % (37.0-47.0); HEMOGLOBIN 14.2 g/dl (12.0-16.0); LYMPHOCYTES # 1.1 10^3/ul (0.8-2.9); LYMPHOCYTES % 14.5 % (15.0-51.0); MEAN CORPUSCULAR HEMOGLOBIN 28.6 pg (29.0-33.0); MEAN CORPUSCULAR HGB CONC 32.9 g/dl (32.0-37.0); MEAN CORPUSCULAR VOLUME 87.1 fl (82.0-101.0); MEAN PLATELET VOLUME 13.5 fl (7.4-10.4); MONOCYTE # 1.1 10^3/ul (0.3-0.9); MONOCYTES % 14.1 % (0.0-11.0); NEUTROPHIL # 5.3 10^3/ul (1.6-7.5); NEUTROPHILS % 68.6 % (39.0-77.0); PLATELET COUNT 127 10^3/UL (140-415); RED BLOOD COUNT 4.96 10^6/ul (4.20-5.40); RED CELL DISTRIBUTION WIDTH 15.3 % (11.5-14.5); WHITE BLOOD COUNT 7.8 10^3/ul (4.8-10.8)
[2016-12-06 08:15] LABS: CREATININE 0.62 mg/dl (0.44-1.00); POTASSIUM 3.4 mmol/L (3.5-5.1)
[2016-12-06] MEDS: FAMOTIDINE 20 MG INJ IV SCH ×2 (08:46→20:30)
[2016-12-06] MEDS: DIPYRIDAMOLE/ASPIRIN (SR) CAP PO SCH ×3 (08:46→20:30)
[2016-12-06] MEDS: ENOXAPARIN 100 MG/ML SYG SC SCH ×2 (08:51→20:40)
[2016-12-06] MEDS: ASPIRIN 300 MG SUPP PR SCH (09:00)
--- NOTE | 2016-12-06 13:17 | PN ---
Date/Time of Note Date/Time of Note DATE: 12/06/16 TIME: 13:13 Assessment/Plan VTE Prophylaxis VTE Prophylaxis Intervention: LMWH Lines/Catheters IV Catheter Type (from Nrs): Peripheral IV Urinary Cath still in place: Yes Reason Cath still needed: urinary retention Assessment/Plan Chief Complaint/Hosp Course Assessment/Plan: 86 yo F admitted and managed for: 1. R sided frontal strokes - pt failed ST eval - reeval performed today.. - f/u PT / OT eval / Neurology consult rec's - switched to Aggrenox but having difficulty swallowing pills. - Screening labs for dyslipidemia, Thyroid disease - Empiric ASA / Statin therapy - for video swallow test 2. Probable UTI - Rocephin 3. Pre DM - ISS 4. Paroxysmal Afib previously on xarelto - on LMWH b/c failed ST 5. Chronic dementia Prophylaxis: lovenox and Pepcid Problems: Subjective 24 Hr Interval Summary Free Text/Dictation Pt a bit more alert, asking about trying to eat food. ST saw pt this AM, did not pass eval. Seen by neuro team yesterday. Awaiting video swallow today. Exam/Review of Systems Vital Signs Vitals Vital Signs Date Time Temp Pulse Resp B/P Pulse Ox O2 Delivery O2 Flow Rate FiO2 12/06/16 12:18 64 12/06/16 11:37 97.9 18 142/90 98 12/06/16 08:18 Nasal Cannula 2.0 Intake and Output 12/05/16 12/05/16 12/06/16 15:00 23:00 07:00 Intake Total 675 ml 1375 ml Output Total 500 ml 1000 ml Balance 175 ml 375 ml Exam GENERAL: Patient is alert, oriented , no distress HEENT: Oropharynx is clear. There is no carotid bruit, no masses. Patient's pupils are equal, round and reactive to light bilaterally. Extraocular motions are intact. NECK: Supple. LUNGS: Clear to auscultation bilaterally with good air entry. No Wheezes or crackles. HEART: S1, S2. No murmur, gallops or rubs. Regular rate and rhythm. ABDOMEN: Soft, nontender. Normoactive bowel sounds. There are no stigmata of chronic liver disease. BACK: no costovertebral angle tenderness. Ext: No cyanosis, or edema, chronic appearing deformities in bilateral lower extremities with left anterior lower extremity wound overlying the tibia with dressing Neur: Awake and alert, slurred incomprehensible speech, right facial droop, able to slightly better hold right arm up, still able to hold left arm up. Strength testing is limited as the patient has very poor effort. She does not move her lower extremities upon command. Results Result Diagram: 12/06/16 0610 12/06/16 0610 Results 24 hrs Laboratory Tests Test 12/05/16 17:37 12/05/16 20:37 12/06/16 06:10 12/06/16 08:45 Bedside Glucose 76 94 108 White Blood Count 7.8 Red Blood Count 4.96 Hemoglobin 14.2 Hematocrit 43.2 Mean Corpuscular Volume 87.1 Mean Corpuscular Hemoglobin 28.6 L Mean Corpuscular Hemoglobin Concent 32.9 Red Cell Distribution Width 15.3 H Platelet Count 127 L Mean Platelet Volume 13.5 H Neutrophils % 68.6 Lymphocytes % 14.5 L Monocytes % 14.1 H Eosinophils % 2.2 Basophils % 0.5 Nucleated Red Blood Cells % 0.0 Neutrophils # 5.3 Lymphocytes # 1.1 Monocytes # 1.1 H Eosinophils # 0.2 Basophils # 0.0 Nucleated Red Blood Cells # 0.0 Sodium Level 142 Potassium Level 3.4 L Chloride Level 107 Carbon Dioxide Level 26 Anion Gap 12 Blood Urea Nitrogen 8 Creatinine 0.62 Glucose Level 107 Calcium Level 9.0 Test 12/06/16 12:22 Bedside Glucose 105 Medications Medications Current Medications Atorvastatin Calcium (Lipitor) 40 mg HS PO Last administered on 12/05/16 20:40 ; Admin Dose 40 MG; Start 12/03/16 at 21:00 Ondansetron HCl (Zofran Inj) 4 mg Q6H PRN IV NAUSEA AND/OR VOMITING; Start at 21:00 Famotidine (Pepcid Iv) 20 mg BID IV Last administered on 12/06/16 08:46; Admin Dose 20 MG; Start 12/03/16 at 21:00 Enoxaparin Sodium (Lovenox) 75 mg Q12 SC Last administered on 12/06/16 08:51; Admin Dose 75 MG; Start 12/03/16 at 21:30 Aspirin 300 mg 300 mg DAILY [place] Last administered on 12/06/16 09:00; Admin Dose 300 MG; Start 12/05/16 at 09:00 Ceftriaxone Sodium 50 ml @ 100 mls/hr Q24H IVPB Last administered on 14:24; Admin Dose 100 MLS/HR; Start 12/04/16 at 15:30 Dextrose/Sodium Chloride (D5-1/2ns) 1,000 ml @ 75 mls/hr [id number] IV Last administered on 12/06/16 00:42; Admin Dose 75 MLS/HR; Start 12/05/16 at 10:00 Diagnostic Test (Pha) (Accu-Chek) 1 ea 02 XX ; Start 12/06/16 at 02:00 Miscellaneous Information 1 ea NOTE XX ; Start 12/05/16 at 10:30 Glucose (Glutose) 15 gm Q15M PRN PO DECREASED GLUCOSE; Start 12/05/16 at 10:30 Glucose (Glutose) 22.5 gm Q15M PRN PO DECREASED GLUCOSE; Start 12/05/16 at 10: 30 Dextrose (D50w Syringe) 25 ml Q15M PRN IV DECREASED GLUCOSE; Start 12/05/16 at 10:30 Dextrose (D50w Syringe) 50 ml Q15M PRN IV DECREASED GLUCOSE; Start 12/05/16 at 10:30 Glucagon (Glucagen) 1 mg Q15M PRN IM DECREASED GLUCOSE; Start 12/05/16 at 10:30 Glucose 15 gm 15 gm Q15M PRN BUCCAL DECREASED GLUCOSE; Start 12/05/16 at 10:30 Fluconazole (Diflucan 200 Mg/ NS (Pmx)) 100 ml @ 100 mls/hr Q24H IVPB Last administered on 12/05/16 15:14; Admin Dose 100 MLS/HR; Start 12/05/16 at 14:30 Dipyridamole/ Aspirin (Aggrenox) 1 cap BID PO Last administered on 12/05/16 20 :40; Admin Dose 1 CAP; Start 12/05/16 at 21:00 DIANNA DIAZ Dec 06, 2016 13:16
[2016-12-06] MEDS: FLUCONAZOLE 200 MG/NS (PMX) 100 ML IVPB SCH (15:24)
[2016-12-06] MEDS: CEFTRIAXONE 1 GM/50 ML (PMX) 50 ML IVPB SCH (15:30)
[2016-12-06] MEDS: ATORVASTATIN 40 MG TAB PO SCH ×2 (20:30→21:00)
[2016-12-07] VITALS (13 sets, daily range): BP systolic 132–165; BP diastolic 66–86; PULSE 65–108; RESP 18–20
[2016-12-07] MEDS: ACCU-CHEK XX SCH ×2 (02:00→21:05)
[2016-12-07] MEDS: DEXTROSE 5%-0.45% NACL 1,000 ML IV SCH ×3 (06:36→19:35)
[2016-12-07] MEDS: INSULIN ASPART [NOVOLOG] 3 ML PEN SC SCH ×4 (07:55→21:00)
[2016-12-07] MEDS: DIPYRIDAMOLE/ASPIRIN (SR) CAP PO SCH ×2 (09:00→20:08)
[2016-12-07] MEDS: ASPIRIN 300 MG SUPP PR SCH (09:57)
[2016-12-07] MEDS: FAMOTIDINE 20 MG INJ IV SCH ×2 (09:57→20:57)
[2016-12-07] MEDS: ENOXAPARIN 100 MG/ML SYG SC SCH ×2 (10:03→21:01)
--- NOTE | 2016-12-07 12:59 | PN ---
Date/Time of Note Date/Time of Note DATE: 12/07/16 TIME: 12:54 Assessment/Plan VTE Prophylaxis VTE Prophylaxis Intervention: LMWH Lines/Catheters IV Catheter Type (from Nrs): Peripheral IV Urinary Cath still in place: Yes Reason Cath still needed: urinary retention Assessment/Plan Chief Complaint/Hosp Course Assessment/Plan: 86 yo F admitted and managed for: 1. R sided frontal strokes - pt failed ST eval - reeval performed today.. - f/u PT / OT eval / Neurology consult rec's - switched to Aggrenox but having difficulty swallowing pills. - Screening labs for dyslipidemia, Thyroid disease - Empiric ASA / Statin therapy - for video swallow test - f/u results. 2. Probable UTI - Rocephin 3. Pre DM - ISS 4. Paroxysmal Afib previously on xarelto - on LMWH b/c failed ST 5. Chronic dementia Prophylaxis: lovenox and Pepcid Problems: Subjective 24 Hr Interval Summary Free Text/Dictation Pt still waiting for video swallow. No acute events overnight. Exam/Review of Systems Vital Signs Vitals Vital Signs Date Time Temp Pulse Resp B/P Pulse Ox O2 Delivery O2 Flow Rate FiO2 12/07/16 12:44 68 12/07/16 11:54 97.6 18 132/76 12/07/16 08:08 Nasal Cannula 2.0 12/07/16 07:42 99 Intake and Output 12/06/16 12/06/16 12/07/16 15:00 23:00 07:00 Intake Total 0 ml Output Total 800 ml Balance -800 ml Results Result Diagram: 12/06/16 0610 12/06/16 0610 Results 24 hrs Laboratory Tests Test 12/06/16 18:04 12/06/16 20:41 12/07/16 08:47 Bedside Glucose 102 109 115 Medications Medications Current Medications Atorvastatin Calcium (Lipitor) 40 mg HS PO Last administered on 12/05/16 20:40 ; Admin Dose 40 MG; Start 12/03/16 at 21:00 Ondansetron HCl (Zofran Inj) 4 mg Q6H PRN IV NAUSEA AND/OR VOMITING; Start at 21:00 Famotidine (Pepcid Iv) 20 mg BID IV Last administered on 12/07/16 09:57; Admin Dose 20 MG; Start 12/03/16 at 21:00 Enoxaparin Sodium (Lovenox) 75 mg Q12 SC Last administered on 12/07/16 10:03; Admin Dose 75 MG; Start 12/03/16 at 21:30 Aspirin 300 mg 300 mg DAILY [place] Last administered on 12/07/16 09:57; Admin Dose 300 MG; Start 12/05/16 at 09:00 Ceftriaxone Sodium 50 ml @ 100 mls/hr Q24H IVPB Last administered on 15:30; Admin Dose 100 MLS/HR; Start 12/04/16 at 15:30 Dextrose/Sodium Chloride (D5-1/2ns) 1,000 ml @ 75 mls/hr [id number] IV Last administered on 12/07/16 09:57; Admin Dose 75 MLS/HR; Start 12/05/16 at 10:00 Diagnostic Test (Pha) (Accu-Chek) 1 ea 02 XX ; Start 12/06/16 at 02:00 Miscellaneous Information 1 ea NOTE XX ; Start 12/05/16 at 10:30 Glucose (Glutose) 15 gm Q15M PRN PO DECREASED GLUCOSE; Start 12/05/16 at 10:30 Glucose (Glutose) 22.5 gm Q15M PRN PO DECREASED GLUCOSE; Start 12/05/16 at 10: 30 Dextrose (D50w Syringe) 25 ml Q15M PRN IV DECREASED GLUCOSE; Start 12/05/16 at 10:30 Dextrose (D50w Syringe) 50 ml Q15M PRN IV DECREASED GLUCOSE; Start 12/05/16 at 10:30 Glucagon (Glucagen) 1 mg Q15M PRN IM DECREASED GLUCOSE; Start 12/05/16 at 10:30 Glucose 15 gm 15 gm Q15M PRN BUCCAL DECREASED GLUCOSE; Start 12/05/16 at 10:30 Fluconazole (Diflucan 200 Mg/ NS (Pmx)) 100 ml @ 100 mls/hr Q24H IVPB Last administered on 12/06/16 15:24; Admin Dose 100 MLS/HR; Start 12/05/16 at 14:30 Dipyridamole/ Aspirin (Aggrenox) 1 cap BID PO Last administered on 12/06/16 20 :30; Admin Dose 1 CAP; Start 12/05/16 at 21:00 DIANNA DIAZ 22, 2017 12:59
[2016-12-07] MEDS: FLUCONAZOLE 200 MG/NS (PMX) 100 ML IVPB SCH (14:15)
[2016-12-07] MEDS: AMPICILLIN 1 GM/NS (PMX) 50 ML IVPB SCH ×2 (17:08→21:04)
[2016-12-07] MEDS: ATORVASTATIN 40 MG TAB PO SCH (20:07)
[2016-12-08] VITALS (16 sets, daily range): BP systolic 136–171; BP diastolic 66–96; PULSE 30–80; RESP 18–20
[2016-12-08] MEDS: AMPICILLIN 1 GM/NS (PMX) 50 ML IVPB SCH ×3 (05:48→21:04)
[2016-12-08] MEDS: DEXTROSE 5%-0.45% NACL 1,000 ML IV SCH ×3 (05:51→23:33)
[2016-12-08] MEDS: INSULIN ASPART [NOVOLOG] 3 ML PEN SC SCH ×4 (07:55→20:09)
[2016-12-08] MEDS: DIPYRIDAMOLE/ASPIRIN (SR) CAP PO SCH ×2 (09:00→20:00)
[2016-12-08] MEDS: FAMOTIDINE 20 MG INJ IV SCH ×2 (09:51→20:00)
[2016-12-08] MEDS: ASPIRIN 300 MG SUPP PR SCH (09:52)
[2016-12-08] MEDS: ENOXAPARIN 100 MG/ML SYG SC SCH ×2 (09:56→20:07)
[2016-12-08] MEDS: FLUCONAZOLE 200 MG/NS (PMX) 100 ML IVPB SCH (14:30)
--- NOTE | 2016-12-08 15:06 | PN ---
Date/Time of Note Date/Time of Note DATE: 12/08/16 TIME: 14:59 Assessment/Plan VTE Prophylaxis VTE Prophylaxis Intervention: LMWH Lines/Catheters IV Catheter Type (from Nrs): Peripheral IV Urinary Cath still in place: Yes Reason Cath still needed: urinary retention Assessment/Plan Chief Complaint/Hosp Course Assessment/Plan: 86 yo F admitted and managed for: 1. R sided frontal strokes - pt failed ST eval a few days ago - reeval performed a few times since then, and video swallow test performed today - results pending - f/u PT / OT eval / Neurology consult rec's - switched to Aggrenox but having difficulty swallowing pills. - Screening labs for dyslipidemia, Thyroid disease - Empiric ASA / Statin therapy - for video swallow test - f/u results - pending results - if fails, may need PEG - continue D51/2 NS IVF's for now 2. Probable UTI - Rocephin 3. Pre DM - ISS 4. Paroxysmal Afib previously on xarelto - on LMWH b/c failed ST 5. Chronic dementia Prophylaxis: lovenox and Pepcid Problems: Subjective 24 Hr Interval Summary Free Text/Dictation Pt had video swallow test earlier today, results pending. Has some vague complaints, but denies nausea, fever, or cp. Exam/Review of Systems Vital Signs Vitals Vital Signs Date Time Temp Pulse Resp B/P Pulse Ox O2 Delivery O2 Flow Rate FiO2 12/08/16 13:34 151/85 12/08/16 12:41 97.7 76 20 92 12/08/16 07:48 Nasal Cannula 2.0 Intake and Output 12/07/16 12/07/16 12/08/16 14:59 22:59 06:59 Intake Total 1170 ml 950 ml Output Total 1200 ml 550 ml Balance -30 ml 400 ml Exam GENERAL: Patient is alert, oriented , no distress HEENT: Oropharynx is clear. There is no carotid bruit, no masses. Patient's pupils are equal, round and reactive to light bilaterally. Extraocular motions are intact. NECK: Supple. LUNGS: Clear to auscultation bilaterally with good air entry. No Wheezes or crackles. HEART: S1, S2. No murmur, gallops or rubs. Regular rate and rhythm. ABDOMEN: Soft, nontender. Normoactive bowel sounds. There are no stigmata of chronic liver disease. BACK: no costovertebral angle tenderness. Ext: No cyanosis, or edema, chronic appearing deformities in bilateral lower extremities with left anterior lower extremity wound overlying the tibia with dressing Neur: Awake and alert, slurred incomprehensible speech, right facial droop, able to slightly better hold right arm up, still able to hold left arm up. Strength testing is limited as the patient has very poor effort. She does not move her lower extremities upon command. Results Result Diagram: 12/06/16 0610 12/06/16 0610 Results 24 hrs Laboratory Tests Test 12/07/16 17:07 12/07/16 21:04 12/08/16 07:42 12/08/16 11:10 Bedside Glucose 92 97 89 92 Medications Medications Current Medications Atorvastatin Calcium (Lipitor) 40 mg HS PO Last administered on 12/05/16 20:40 ; Admin Dose 40 MG; Start 12/03/16 at 21:00 Ondansetron HCl (Zofran Inj) 4 mg Q6H PRN IV NAUSEA AND/OR VOMITING; Start at 21:00 Famotidine (Pepcid Iv) 20 mg BID IV Last administered on 12/08/16 09:51; Admin Dose 20 MG; Start 12/03/16 at 21:00 Enoxaparin Sodium (Lovenox) 75 mg Q12 SC Last administered on 12/08/16 09:56; Admin Dose 75 MG; Start 12/03/16 at 21:30 Aspirin 300 mg 300 mg DAILY [place] Last administered on 12/08/16 09:52; Admin Dose 300 MG; Start 12/05/16 at 09:00 Dextrose/Sodium Chloride (D5-1/2ns) 1,000 ml @ 75 mls/hr [id number] IV Last administered on 12/08/16 11:09; Admin Dose 75 MLS/HR; Start 12/05/16 at 10:00 Diagnostic Test (Pha) (Accu-Chek) 1 ea 02 XX ; Start 12/06/16 at 02:00 Miscellaneous Information 1 ea NOTE XX ; Start 12/05/16 at 10:30 Glucose (Glutose) 15 gm Q15M PRN PO DECREASED GLUCOSE; Start 12/05/16 at 10:30 Glucose (Glutose) 22.5 gm Q15M PRN PO DECREASED GLUCOSE; Start 12/05/16 at 10: 30 Dextrose (D50w Syringe) 25 ml Q15M PRN IV DECREASED GLUCOSE; Start 12/05/16 at 10:30 Dextrose (D50w Syringe) 50 ml Q15M PRN IV DECREASED GLUCOSE; Start 12/05/16 at 10:30 Glucagon (Glucagen) 1 mg Q15M PRN IM DECREASED GLUCOSE; Start 12/05/16 at 10:30 Glucose 15 gm 15 gm Q15M PRN BUCCAL DECREASED GLUCOSE; Start 12/05/16 at 10:30 Fluconazole (Diflucan 200 Mg/ NS (Pmx)) 100 ml @ 100 mls/hr Q24H IVPB Last administered on 12/08/16 14:30; Admin Dose 100 MLS/HR; Start 12/05/16 at 14:30 Dipyridamole/ Aspirin 1 cap 1 cap BID PO Last administered on 12/06/16 20:30; Admin Dose 1 CAP; Start 12/05/16 at 21:00 Ampicillin (Ampicillin 1 Gm/ NS (Pmx)) 50 ml @ 100 mls/hr Q8 IVPB Last administered on 12/08/16 13:28; Admin Dose 100 MLS/HR; Start 12/07/16 at 14:00 DAINNA DIAZ Dec 08, 2016 15:05
[2016-12-08 16:19] LABS: ADD SCAN DIFF NO
[2016-12-08 16:32] LABS: ABNORMAL IP MESSAGE 1; BASOPHILS % 0.4 % (0.0-2.0); EOSINOPHILS # 0.1 10^3/ul (0.0-0.5); EOSINOPHILS % 1.8 % (0.0-7.0); HEMATOCRIT 45.7 % (37.0-47.0); HEMOGLOBIN 14.9 g/dl (12.0-16.0); LYMPHOCYTES # 1.3 10^3/ul (0.8-2.9); LYMPHOCYTES % 16.4 % (15.0-51.0); MEAN CORPUSCULAR HEMOGLOBIN 27.7 pg (29.0-33.0); MEAN CORPUSCULAR HGB CONC 32.6 g/dl (32.0-37.0); MEAN CORPUSCULAR VOLUME 84.9 fl (82.0-101.0); MEAN PLATELET VOLUME 13.4 fl (7.4-10.4); MONOCYTE # 1.1 10^3/ul (0.3-0.9); MONOCYTES % 14.1 % (0.0-11.0); NEUTROPHIL # 5.2 10^3/ul (1.6-7.5); RED BLOOD COUNT 5.38 10^6/ul (4.20-5.40); RED CELL DISTRIBUTION WIDTH 15.2 % (11.5-14.5); WHITE BLOOD COUNT 7.7 10^3/ul (4.8-10.8)
--- NOTE | 2016-12-08 16:34 | RADRPT ---
PROCEDURE: Video-fluoroscopy swallowing study. CLINICAL INDICATION: Dysphagia. TECHNIQUE: Fluoroscopic guided video swallowing study was done in conjunction with the speech ther apist. The study was confined to the oral, pharyngeal, and cervical phases of the swallowing mechani sm. 3.0 minutes of fluoroscopy time was used. 30 series of images were obtained. COMPARISON: No prior study is available for comparison. FINDINGS: There is silent aspiration during swallowing thin liquid by spoon. Other trials resulted in penetra tion without aspiration. IMPRESSION: 1. Aspiration during swallowing thin liquid by spoon. 2. Please refer to the speech therapist's recommendations for future feedings. RPTAT: QQ .Bishnu Burgos MD, Date Time Electronically viewed and signed by .Bishnu Burgos MD, on 12/08/2016 16:34 .R/
[2016-12-08 16:35] LABS: PLATELET COUNT 149 10^3/UL (140-415)
[2016-12-08 16:45] LABS: CALCIUM 9.4 mg/dl (8.4-10.2); CREATININE 0.57 mg/dl (0.44-1.00); POTASSIUM 3.1 mmol/L (3.5-5.1)
--- NOTE | 2016-12-08 16:52 | RADRPT ---
PROCEDURE: XR Chest. CLINICAL INDICATION: Shortness of breath. TECHNIQUE: Single frontal view. COMPARISON: 12/03/2016. FINDINGS: There is mild interstitial pulmonary edema, unchanged. The lungs are otherwise clear. The heart is enlarged. There is no pleural effusion or pneumothorax. Contrast is present in the gastrointestinal tract in the left upper quadrant of the abdomen. There is a benign sclerotic lesion in the proximal right humerus. IMPRESSION: 1. No significant change from 12/03/2016. RPTAT: QQ .Bishnu Burgos MD, MD Date Time Electronically viewed and signed by .Bishnu Burgos MD, MD on 12/08/2016 16:51 .R/
[2016-12-08] MEDS: ATORVASTATIN 40 MG TAB PO SCH (20:00)
[2016-12-08] MEDS ORDERED: POTASSIUM CHLORIDE (SR) 20 MEQ TAB PO ONE (20:00)
[2016-12-09] VITALS (10 sets, daily range): BP systolic 125–148; BP diastolic 68–85; PULSE 52–89; RESP 20
[2016-12-09] MEDS ORDERED: POTASSIUM CHLORIDE (SR) 20 MEQ TAB PO ONE
[2016-12-09] MEDS: ACCU-CHEK XX SCH (01:50)
[2016-12-09] MEDS: AMPICILLIN 1 GM/NS (PMX) 50 ML IVPB SCH ×2 (05:06→14:15)
[2016-12-09] MEDS: DEXTROSE 5%-0.45% NACL 1,000 ML IV SCH ×2 (07:20→12:07)
[2016-12-09] MEDS: INSULIN ASPART [NOVOLOG] 3 ML PEN SC SCH ×3 (07:55→17:40)
[2016-12-09] MEDS: FAMOTIDINE 20 MG INJ IV SCH (08:16)
[2016-12-09] MEDS: DIPYRIDAMOLE/ASPIRIN (SR) CAP PO SCH (08:16)
[2016-12-09] MEDS: ENOXAPARIN 100 MG/ML SYG SC SCH (09:28)
[2016-12-09] MEDS: ASPIRIN 300 MG SUPP PR SCH (10:14)
[2016-12-09 12:09] LABS: ADD SCAN DIFF NO
[2016-12-09 12:11] LABS: BASOPHILS % 0.4 % (0.0-2.0); EOSINOPHILS # 0.2 10^3/ul (0.0-0.5); EOSINOPHILS % 2.1 % (0.0-7.0); HEMATOCRIT 44.1 % (37.0-47.0); HEMOGLOBIN 13.9 g/dl (12.0-16.0); LYMPHOCYTES # 1.4 10^3/ul (0.8-2.9); LYMPHOCYTES % 19.8 % (15.0-51.0); MEAN CORPUSCULAR HEMOGLOBIN 27.5 pg (29.0-33.0); MEAN CORPUSCULAR HGB CONC 31.5 g/dl (32.0-37.0); MEAN CORPUSCULAR VOLUME 87.2 fl (82.0-101.0); MEAN PLATELET VOLUME 12.9 fl (7.4-10.4); MONOCYTE # 1.2 10^3/ul (0.3-0.9); MONOCYTES % 16.7 % (0.0-11.0); NEUTROPHIL # 4.4 10^3/ul (1.6-7.5); NEUTROPHILS % 60.7 % (39.0-77.0); PLATELET COUNT 144 10^3/UL (140-415); RED BLOOD COUNT 5.06 10^6/ul (4.20-5.40); RED CELL DISTRIBUTION WIDTH 15.2 % (11.5-14.5); WHITE BLOOD COUNT 7.2 10^3/ul (4.8-10.8)
--- NOTE | 2016-12-09 12:15 | PDOCDIS ---
Discharge Instructions CONDITION Patient Condition: Stable HOME CARE INSTRUCTIONS: Special Diet: DIANNA HANSEN Dec 09, 2016 12:15
[2016-12-09 12:28] LABS: CALCIUM 9.1 mg/dl (8.4-10.2); CREATININE 0.74 mg/dl (0.44-1.00); POTASSIUM 3.7 mmol/L (3.5-5.1)
--- NOTE | 2016-12-09 12:58 | DS ---
DATE OF ADMISSION: 12/03/2016 DATE OF DISCHARGE: 12/09/2016 HOSPITAL COURSE: This is an 86-year-old female who was originally admitted on 12/03/2016, being dis charged back to [facility] facility on 12/09/2016. The patient came in because she was found t o have stroke-like symptoms and indeed she was admitted to telemetry floor and was found with right- sided frontal strokes. Her initial head CT showed interval loss of gilbert-white differentiation withi n the right frontoparietal lobe suggestive of an acute or recent infarct, although there was no acut e intracranial hemorrhage found, and then the patient underwent a carotid Doppler study as well that showed no evidence of any hemodynamically significant carotid artery stenosis. 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 In any event, the patient was admitted, seen by ne urology team who changed her high-dose aspirin to Aggrenox. The patient was allowed for permissive hypertension, seen by speech and physical therapy team as well. Her symptoms slowly improved. She had some unilateral weakness symptoms that improved as well. Her speech was somewhat compromised. She underwent multiple swallow evaluations and eventually underwent a video swallow and eventually w as able to tolerate a pureed nectar thick liquid diet as well. The patient is clinically improved. She was also treated for both enterococcus and yeast UTI. She is on antibiotics for that. She is conversing fairly well. Her vital signs are stable and she will be discharged back to [facility] facility today in improved condition. DISCHARGE MEDICATIONS: She will be sent back with the following medications: 1. Ampicillin 1 gram IV q. 8 hours for 5 more days. 2. Lipitor 40 mg at bedtime. 3. Aggrenox 1 capsule p.o. b.i.d. 4. Xarelto 10 mg b.i.d. 5. Famotidine 40 mg at bedtime. 6. Fluconazole 200 mg IV for 5 more days. 7. Mild Insulin NovoLog sliding scale. 8. Zofran 4 mg IV q.6h. p.r.n. 9. Amino acid protein 30 mL b.i.d. 10. Amlodipine 10 mg daily. 11. Vitamin C 500 mg daily. 12. Dulcolax 10 mg per rectal p.r.n. 13. Coreg 6.25 mg b.i.d. 14. Vitamin D3 1000 units daily. 15. Cranberry 400 mg daily. 16. Colace 100 mg b.i.d. 17. Ferrous sulfate 325 mg b.i.d. 18. Gabapentin 300 mg t.i.d. 19. Milk of magnesia 30 mL daily p.r.n. 20. Magnesium oxide 400 mg daily. 21. Namenda XR 28 mg daily. 22. Mineral oil 133 mL per rectal daily p.r.n. 23. Remeron 7.5 mg at bedtime. 24. Multivitamin 1 tab daily. 25. Senna 1 tab daily. 26. Ultram 50 mg q.8h. p.r.n. She will need to follow up with primary doctor in the clinic in the next 1 to 2 weeks. FINAL DIAGNOSES: 1. 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 2. Urinary tract infection, fungal and bacterial. 3. Prediabetes. 4. Paroxysmal atrial fibrillation, on anticoagulation. 5. Chronic dementia. Time spent with patient 45 minutes. Dictated By: DIANNA ESPINOZA Conf#: [id number] DID#: [id number]
[2016-12-09] MEDS: FLUCONAZOLE 200 MG/NS (PMX) 100 ML IVPB SCH (16:05)
[2016-12-09] MEDS ORDERED: DEXTROSE 50% 50 ML SYRINGE IV ONE (18:30)
[2016-12-10] MEDS ORDERED: FAMOTIDINE 20 MG INJ IV SCH (09:00)
== END 2016-12-09 20:08 | DRG 64 ==
LOC: E/R 08:46 → TEL 11:05
PROVIDERS: ADMIT Family Medicine; ATTEND Family Medicine
DX: I63.9 Cerebral infarction, unspecified (principal); L89.153 Pressure ulcer of sacral region, stage 3; N39.0 Urinary tract infection, site not specified; G81.90 Hemiplegia, unspecified affecting unspecified side; I48.0 Paroxysmal atrial fibrillation; F03.90 Unspecified dementia, unspecified severity, without behavioral disturbance, psychotic disturbance, mood disturbance, and anxiety; B95.2 Enterococcus as the cause of diseases classified elsewhere; B37.49 Other urogenital candidiasis; R73.03 Prediabetes; R47.81 Slurred speech
CPT/HCPCS: 36415; 70450; 70551; 71010; 74230; 80048; 80053; 80061; 80076; 80307; 81001; 82550; 82553; 82962; 83036; 83735; 84443; 84484; 85025; 85610; 85730; 87081; 87086; 92526; 92610; 92611; 93005; 93306; 93880; 96374; 97110; 97162; 97530; J0696; J1650; J1815; J2543; J7040; J7042

== ENCOUNTER 2017-09-26 12:57 | Inpatient (IN) | END 2017-10-03 17:18 | DRG 871 ==